=== PATIENT | female | born 2000 | race Caucasian/White ===

== ENCOUNTER 2021-12-22 11:40 | Emergency (ER) | payer MEDICAID ==
[~2021-12-22] VITALS: Ht 167.6 cm; Wt 49.9 kg
[2021-12-22] MEDS ORDERED: ACETAMINOPHEN ES 500 MG TABLET PO ONE (12:00)
[2021-12-22] MEDS ORDERED: ACETAMINOPHEN ES 500 MG TABLET ONE (12:04)
[2021-12-22 12:31] LABS: HEMATOCRIT 39.5 % (31.2-41.9); MEAN CORPUSCULAR HEMOGLOBIN 32.2 uug (24.7-32.8); MEAN CORPUSCULAR VOLUME 91.6 fL (75.5-95.3); PLATELET COUNT (AUTO) 295 K/uL (179-408)
[2021-12-22 12:50] LABS: ALANINE AMINOTRANSFERASE 23 U/L (14-59); ALKALINE PHOSPHATASE 66 U/L (50-136); ASPARTATE AMINOTRANSFERASE 7 U/L (15-37); BILIRUBIN,DIRECT < 0.1 mg/dL (0.0-0.2); BILIRUBIN,TOTAL 0.3 mg/dL (0.2-1.0); CARBON DIOXIDE 28 mmol/L (21-32); CHLORIDE 104 mmol/L (98-107); CREATININE 0.7 mg/dL (0.6-1.3); GLUCOSE 96 mg/dL (74-106); LIPASE 108 U/L (73-393); POTASSIUM 3.8 mmol/L (3.5-5.1); TOTAL PROTEIN, SERUM 7.4 g/dL (6.4-8.2); UREA NITROGEN, BLOOD 9 mg/dL (7-18)
[2021-12-22 13:39] LABS: *BILIRUBIN,URIN NEGATIVE (NEGATIVE); *BLOOD, URINE NEGATIVE (NEGATIVE); *CLARITY,URINE CLEAR (CLEAR); *COLOR,URINE YELLOW (YELLOW); *KETONES,URINE TRACE (NEGATIVE); *UROBILINOGEN,URINE 0.2 E.U./dl (NORMAL); LEUKOCYTE ESTERASE ,URINE NEGATIVE (NEGATIVE); NITRITE, URINE NEGATIVE (NEGATIVE); PH,URINE 6.5 (5.0-8.0); UGLUCOSE NEGATIVE (NEGATIVE)
[2021-12-22 13:40] LABS: *URINE HCG, QUAL NEGATIVE (NEGATIVE)
--- NOTE | 2021-12-22 14:30 | NUR ---
Endorse care to rn. Pérez.
--- NOTE | 2021-12-22 14:44 | NUR ---
Differential Tester assumes care. Patient's primary nurse Elis is leaving ER 2/2 unforseen circumstances. Patient is waiting for tests' results and disposition@this time. Patient is resting comfortably on gurney with [email or web address].
--- NOTE | 2021-12-22 15:01 | NUR ---
Patient refused transvaginal ultrasound, MD notified. Patient is still waiting for more tests' results (e.g. urine microscopic & BMP).
[2021-12-22 15:20] LABS: BACTERIA,URINE MANY /HPF (NONE SEEN); RBC,URINE NONE SEEN /HPF (0-3); SQUAMOUS EPITHELIAL CELL,UR MODERATE /HPF (NONE SEEN)
[2021-12-22 15:21] LABS: WBC,URINE 0-3 /HPF (0-3)
--- NOTE | 2021-12-22 15:49 | NUR ---
Patient discharged to home in stable condition with brisk steady gait. Written and verbal after care instructions given to patient and mother. Patient and mother verbalized understanding and compliance of instructions. Stressed follow up with primary doctor and medical coding manager or return to ER for worsening s/s.
--- NOTE | 2021-12-22 15:49 | NUR ---
All copies of results were handed to patient.
== END 2021-12-22 15:50 | disposition home or self-care (01) ==
LOC: ER 11:40
DX: R10.30 Lower abdominal pain, unspecified (principal)
CPT/HCPCS: 36415; 70030-TC; 83690; 84703; 85025; 87086; A4663; A9150